=== PATIENT | female | born 1945 | race Caucasian/White ===

== ENCOUNTER 2020-10-12 06:20 | Inpatient (IN) ==
[2020-10-12] MEDS ORDERED: ONDANSETRON 4 MG/2 ML VIAL IV STA (06:34)
[2020-10-12] MEDS ORDERED: DIPH/TET/ACEL PERT BOOSTER VACCINE 0.5 ML VIAL IM ONE (06:34)
[2020-10-12] MEDS ORDERED: SODIUM CHLORIDE 0.9% 1,000 ML IV STA (06:34)
[2020-10-12] MEDS ORDERED: HYDROmorphone 2 MG/1 ML VIAL IV STA (06:35)
[2020-10-12 07:27] LABS: Basophils % 0.2 % (0.0-0.8); Eosinophils # 0.1 10*3/uL (0.0-0.87); Eosinophils % 1.2 % (0.00-10.9); Hematocrit 37.7 VOL% (35.7-47.0); Hemoglobin 12.1 GM/DL (12.0-16.0); Immature Granulocytes % 0.3 %; Immature Granulocytes Absolute 0.02 #; Lymphocytes # 1.1 10*3/uL (1.4-4.0); Lymphocytes % 17.4 % (21.3-54.2); Mean Corpuscular HGB Conc 32.1 GM/DL (32-36); Mean Corpuscular Volume 89.5 FL (87-102); Mean Platelet Volume 10.3 FL (9.6-12.0); Monocytes % 6.7 % (1.7-12.7); Neutrophils % 74.2 % (38.7-73.9); Platelet Count 135 T/CUMM (130-400); Red Blood Count 4.21 MC/CUMM (3.8-5.5); Red Cell Distribution Width 13.3 % (9.3-17.3); White Blood Count 6.1 T/CUMM (4-12)
[2020-10-12 07:30] LABS: Bilirubin,Urine Negative (Negative); Blood, Urine Negative (Negative); Glucose,Urine (UA) Negative (Negative); Ketones,Urine Negative (Negative); Mucus,Urine Occasional /LPF (Occasional); Nitrite,Urine Negative (Negative); Protein,Urine Negative; RBC,Urine 1 /HPF (0-4); Squamous Epithelial Cell,Urine Occasional /HPF (0-10); Urine Appearance CLEAR (Clear); Urine Color Straw (Yellow); Urine Urobilinogen < 2.0 EU/DL (0.2-1.0)
[2020-10-12 07:40] LABS: Partial Thromboplastin Time 31.2 SECS (23.9-33.8)
[2020-10-12 07:47] LABS: Anisocytosis 1+; Macrocytosis Slight; Platelet Estimate Adequate
[2020-10-12 07:52] LABS: Albumin 3.2 G/DL (3.4-5.0); Bilirubin,Total 0.7 MG/DL (0.20-1.00); Calcium 8.2 MG/DL (8.5-10.1); Osmolality,Calculated 282.3 MOS/KG (273-304); Potassium 3.5 MMOL/L (3.5-5.1); Total Protein 6.5 G/DL (6.4-8.2)
[2020-10-12] MEDS ORDERED: BISACODYL 5 MG TABLET PO PRN (07:56)
[2020-10-12] MEDS ORDERED: ONDANSETRON 4 MG/2 ML VIAL IV PRN (07:56)
[2020-10-12] MEDS ORDERED: GLUCAGON 1 MG VIAL IM PRN (07:56)
[2020-10-12] MEDS ORDERED: MORPHINE 2 MG/1 ML SYRINGE IV PRN ×2 (07:56→17:22)
[2020-10-12] MEDS ORDERED: DEXTROSE 50% 25 GM/50 ML VIAL IV PRN (07:56)
[2020-10-12] MEDS ORDERED: MECLIZINE 12.5 MG TABLET PO PRN (08:02)
[2020-10-12] MEDS: LACTATED RINGERS 1,000 ML IV SCH (09:27)
[2020-10-12] MEDS: DOCUSATE SODIUM 100 MG CAPSULE PO SCH ×2 (09:27→21:18)
[2020-10-12] MEDS ORDERED: MIDAZOLAM 2 MG/2 ML VIAL ONE (15:44)
[2020-10-12] MEDS ORDERED: propofoL 200 MG/20 ML VIAL IV ONE (15:44)
[2020-10-12] MEDS ORDERED: LIDOCAINE 2% 5 ML VIAL ONE (15:44)
[2020-10-12] MEDS ORDERED: SUCCINYLCHOLINE 200 MG/10 ML VIAL ONE (15:44)
[2020-10-12] MEDS ORDERED: SEVOFLURANE 1 UNIT/15 MINUTE INH ONE (15:44)
[2020-10-12] MEDS ORDERED: fentaNYL 100 MCG/2 ML VIAL ONE (15:45)
[2020-10-12] MEDS ORDERED: PHENYLEPHRINE 1 MG/10 ML SYRINGE IV ONE (16:15)
[2020-10-12] MEDS ORDERED: ceFAZolin 1,000 MG VIAL ONE (16:32)
[2020-10-12] MEDS ORDERED: TRANEXAMIC ACID 1,000 MG/10 ML VIAL ONE (16:34)
[2020-10-12] MEDS ORDERED: ACETAMINOPHEN INJ 1,000 MG/100 ML VIAL IV ONE (16:45)
[2020-10-12] MEDS ORDERED: ePHEDrine 50 MG/ML VIAL ONE (16:45)
[2020-10-12] MEDS ORDERED: TEMAZEPAM 7.5 MG CAPSULE PO PRN (17:15)
[2020-10-12] MEDS ORDERED: diphenhydrAMINE CAP 25 MG CAPSULE PO PRN (17:15)
[2020-10-12] MEDS ORDERED: LACTULOSE 20 GM/30 ML UDCUP PO PRN (17:15)
[2020-10-12] MEDS ORDERED: BISACODYL 10 MG SUPP RECTAL PRN (17:15)
[2020-10-12] MEDS ORDERED: MAGNESIUM HYDROXIDE SUSP 30 ML UDCUP PO PRN (17:15)
[2020-10-12] MEDS: AMITRIPTYLINE 10 MG TABLET PO SCH (21:18)
[2020-10-13] MEDS: FONDAPARINUX 2.5 MG/0.5 ML SYRINGE SUBCUT SCH (05:50)
[2020-10-13 06:05] LABS: Basophils % 0.4 % (0.0-0.8); Eosinophils # 0.2 10*3/uL (0.0-0.87); Eosinophils % 4.8 % (0.00-10.9); Hematocrit 33.9 VOL% (35.7-47.0); Hemoglobin 10.8 GM/DL (12.0-16.0); Immature Granulocytes % 0.2 %; Immature Granulocytes Absolute 0.01 #; Lymphocytes # 1.3 10*3/uL (1.4-4.0); Mean Corpuscular HGB Conc 31.9 GM/DL (32-36); Mean Corpuscular Volume 91.4 FL (87-102); Neutrophils % 63.6 % (38.7-73.9); Platelet Count 122 T/CUMM (130-400); Red Blood Count 3.71 MC/CUMM (3.8-5.5); Red Cell Distribution Width 13.7 % (9.3-17.3)
[2020-10-13 06:23] LABS: Calcium 7.8 MG/DL (8.5-10.1); Osmolality,Calculated 277.5 MOS/KG (273-304); Potassium 4.1 MMOL/L (3.5-5.1)
[2020-10-13 06:27] LABS: Platelet Estimate Adequate
[2020-10-13 06:28] LABS: Anisocytosis 1+
[2020-10-13] MEDS ORDERED: LEVOTHYROXINE 125 MCG TABLET PO SCH (07:00)
[2020-10-13] MEDS ORDERED: ENOXAPARIN 40 MG/0.4 ML SYRINGE SUBCUT SCH (08:00)
[2020-10-13] MEDS ORDERED: Ergocalciferol (Vitamin D2) 50 mcg (2,000 unit) Tablet PO SCH (09:00)
[2020-10-13] MEDS: CYANOCOBALAMIN 500 MCG TABLET PO SCH (09:27)
[2020-10-13] MEDS: MULTIVITAMIN (CENTRUM) TABLET PO SCH (09:27)
[2020-10-13] MEDS: CALCIUM (CARBONATE)/VITAMIN D 600 MG-400 UNIT TABLET PO SCH (09:27)
[2020-10-13] MEDS: DOCUSATE SODIUM 100 MG CAPSULE PO SCH ×2 (09:27→21:18)
[2020-10-13] MEDS ORDERED: MORPHINE 2 MG/1 ML SYRINGE IV PRN ×2 (09:40→10:00)
[2020-10-13] MEDS: LACTATED RINGERS 1,000 ML IV SCH (11:43)
[2020-10-13] MEDS: CHOLECALCIFEROL 1,000 UNIT TABLET PO SCH (12:17)
[2020-10-13] MEDS: LEVOFLOXACIN INJ 500 MG/100 ML PREMIX IV SCH (12:17)
[2020-10-13] MEDS: ALBUTEROL/IPRATROPIUM 3 ML NEB RESP TX SCH ×3 (14:25→19:10)
[2020-10-13] MEDS: AMITRIPTYLINE 10 MG TABLET PO SCH (21:18)
[2020-10-14] MEDS: ALBUTEROL/IPRATROPIUM 3 ML NEB RESP TX SCH ×4 (01:14→19:22)
[2020-10-14] MEDS: LACTATED RINGERS 1,000 ML IV SCH (05:39)
[2020-10-14] MEDS: LEVOTHYROXINE 100 MCG TABLET PO SCH (06:21)
[2020-10-14] MEDS: FONDAPARINUX 2.5 MG/0.5 ML SYRINGE SUBCUT SCH (06:21)
[2020-10-14 08:16] LABS: Basophils % 0.5 % (0.0-0.8); Eosinophils # 0.3 10*3/uL (0.0-0.87); Eosinophils % 4.2 % (0.00-10.9); Hematocrit 33.7 VOL% (35.7-47.0); Hemoglobin 10.9 GM/DL (12.0-16.0); Immature Granulocytes % 0.6 %; Immature Granulocytes Absolute 0.04 #; Lymphocytes # 1.9 10*3/uL (1.4-4.0); Lymphocytes % 28.9 % (21.3-54.2); Mean Corpuscular HGB Conc 32.3 GM/DL (32-36); Mean Corpuscular Volume 90.6 FL (87-102); Mean Platelet Volume 10.5 FL (9.6-12.0); Monocytes % 5.4 % (1.7-12.7); Neutrophils % 60.4 % (38.7-73.9); Platelet Count 124 T/CUMM (130-400); Red Blood Count 3.72 MC/CUMM (3.8-5.5); Red Cell Distribution Width 13.7 % (9.3-17.3); White Blood Count 6.5 T/CUMM (4-12)
[2020-10-14] MEDS: CALCIUM (CARBONATE)/VITAMIN D 600 MG-400 UNIT TABLET PO SCH (08:40)
[2020-10-14] MEDS: DOCUSATE SODIUM 100 MG CAPSULE PO SCH ×2 (08:40→21:49)
[2020-10-14] MEDS: MULTIVITAMIN (CENTRUM) TABLET PO SCH (08:40)
[2020-10-14] MEDS: PANTOPRAZOLE 40 MG TABLET PO SCH (08:40)
[2020-10-14] MEDS: CYANOCOBALAMIN 500 MCG TABLET PO SCH (08:40)
[2020-10-14] MEDS: CHOLECALCIFEROL 1,000 UNIT TABLET PO SCH (08:40)
[2020-10-14 08:44] LABS: Calcium 8.4 MG/DL (8.5-10.1); Potassium 3.8 MMOL/L (3.5-5.1)
[2020-10-14] MEDS: LEVOFLOXACIN INJ 500 MG/100 ML PREMIX IV SCH (11:04)
[2020-10-14] MEDS: AMITRIPTYLINE 10 MG TABLET PO SCH (21:49)
[2020-10-15] MEDS: ALBUTEROL/IPRATROPIUM 3 ML NEB RESP TX SCH ×2 (01:28→06:50)
[2020-10-15] MEDS: ACETAMINOPHEN 325 MG TABLET PO PRN ×3 (01:53→12:05)
[2020-10-15 04:58] LABS: Basophils % 0.4 % (0.0-0.8); Eosinophils # 0.2 10*3/uL (0.0-0.87); Eosinophils % 3.9 % (0.00-10.9); Hematocrit 28.7 VOL% (35.7-47.0); Hemoglobin 9.4 GM/DL (12.0-16.0); Immature Granulocytes % 0.4 %; Immature Granulocytes Absolute 0.02 #; Lymphocytes # 1.2 10*3/uL (1.4-4.0); Lymphocytes % 23.7 % (21.3-54.2); Mean Corpuscular HGB Conc 32.8 GM/DL (32-36); Mean Corpuscular Volume 88.9 FL (87-102); Mean Platelet Volume 10.8 FL (9.6-12.0); Neutrophils % 64.6 % (38.7-73.9); Platelet Count 96 T/CUMM (130-400); Red Blood Count 3.23 MC/CUMM (3.8-5.5); Red Cell Distribution Width 13.6 % (9.3-17.3); White Blood Count 5.1 T/CUMM (4-12)
[2020-10-15 05:49] LABS: Hypochromasia 1+; Microcytosis 1+
[2020-10-15 05:50] LABS: Ovalocytes Slight; Platelet Estimate Decreased
[2020-10-15 05:59] LABS: Calcium 8.5 MG/DL (8.5-10.1); Osmolality,Calculated 273.8 MOS/KG (273-304); Potassium 4.2 MMOL/L (3.5-5.1)
[2020-10-15 06:25] LABS: Folate > 24.00 NG/ML (5.38-24.0); Vitamin B12 864 PG/ML (211-911)
[2020-10-15] MEDS: LEVOTHYROXINE 100 MCG TABLET PO SCH (06:34)
[2020-10-15] MEDS: FONDAPARINUX 2.5 MG/0.5 ML SYRINGE SUBCUT SCH (06:35)
[2020-10-15] MEDS: CALCIUM (CARBONATE)/VITAMIN D 600 MG-400 UNIT TABLET PO SCH (09:24)
[2020-10-15] MEDS: PANTOPRAZOLE 40 MG TABLET PO SCH (09:24)
[2020-10-15] MEDS: DOCUSATE SODIUM 100 MG CAPSULE PO SCH (09:24)
[2020-10-15] MEDS: CYANOCOBALAMIN 500 MCG TABLET PO SCH (09:24)
[2020-10-15] MEDS: CHOLECALCIFEROL 1,000 UNIT TABLET PO SCH (09:24)
[2020-10-15] MEDS: MULTIVITAMIN (CENTRUM) TABLET PO SCH (09:24)
[2020-10-15] MEDS: LEVOFLOXACIN INJ 500 MG/100 ML PREMIX IV SCH (10:40)
[2020-10-15 11:08] VITALS: BP 114/35
[2020-10-18 12:43] LABS: 25-Hydroxy D2 5.9 ng/mL
== END 2020-10-15 12:35 | disposition swing bed (61) | DRG 521 ==
LOC: EDBD → EDUNIT# → N.ED 06:20 → SUATTDRO 07:56 → N.EDINP 07:56 → N.3E 15:10
PROVIDERS: ADMIT Internal Medicine; ATTEND Internal Medicine